=== PATIENT | male | born 1965 | race Caucasian/White ===

== ENCOUNTER 2020-10-21 16:06 | Emergency (ER) | payer SELFPAY ==
[2020-10-21] MEDS ORDERED: Sodium Chloride 0.9% 10 ML Syringe FLUSH PRN (16:59)
--- NOTE | 2020-10-21 17:04 | EDM.PDOC ---
ED HPI GENERAL MEDICAL PROBLEM - General Chief Complaint: Abdominal Pain Stated Complaint: LOWER ABD PAIN Time Seen by Provider: 10/21/20 16:45 Source of Information: Reports: Patient, Family, RN Notes Reviewed History Limitations: Reports: No Limitations - History of Present Illness INITIAL COMMENTS - FREE TEXT/NARRATIVE: Seth presents today for complaint of left lower abdominal pain. He initially presented to the clinic in [place], [place]. Seth states he has been having left lower abdominal pain for 2 or more days with significant worsening today. He reports pain as a 7/10 when it is at its worst and 5/10 when it lets up. He has not tried any OTC medications or treatments for the pain. He denies diarrhea, nausea, vomiting, constipation, fever, chills. He reports colonoscopy about 2 years ago Marcello Berumen Left Lower Abdomen Pain Score (Numeric/FACES): 6 - Related Data Allergies Allergy/AdvReac Type Severity Reaction Status Date / Time No Known Allergies Allergy Verified 10/21/20 16:40 Home Meds: Home Meds metFORMIN HCl [Metformin HCl ER] 1,000 mg PO DAILY 10/21/20 [History] traZODone HCl [Trazodone HCl] 100 - 200 mg PO BEDTIME 10/21/20 [History] Past Medical History Gastrointestinal History: Reports: Other (See Below) Other Gastrointestinal History: hernia Psychiatric History: Reports: Anxiety Endocrine/Metabolic History: Reports: Other (See Below) Other Endocrine/Metabolic History: pre-diabetic - Past Surgical History GI Surgical History: Reports: Cholecystectomy Social & Family History - Tobacco Use Years of Tobacco use: 30 Packs/Tins Daily: 1 - Caffeine Use Caffeine Use: Reports: None - Recreational Drug Use Recreational Drug Use: No ED ROS GENERAL - Review of Systems Review Of Systems: See Below Constitutional: Denies: Fever, Chills, Malaise, Weakness HEENT: Reports: No Symptoms Respiratory: Reports: No Symptoms Cardiovascular: Reports: No Symptoms Endocrine: Reports: No Symptoms GI/Abdominal: Reports: Abdominal Pain (LLQ), Decreased Appetite. Denies: Black Stool, Bloody Stool, Constipation, Diarrhea, Difficulty Swallowing, Distension, Flatus, Nausea, Stool Incontinence, Vomiting : Denies: Dysuria, Flank Pain, Frequency, Hematuria, Incontinence, Pain, Urgency, Urinary Retention Musculoskeletal: Reports: No Symptoms Skin: Reports: No Symptoms Neurological: Reports: No Symptoms Psychiatric: Reports: No Symptoms Hematologic/Lymphatic: Reports: No Symptoms Immunologic: Reports: No Symptoms ED EXAM, GI/ABD - Physical Exam Exam: See Below Exam Limited By: No Limitations General Appearance: Alert, WD/WN, Mild Distress Eyes: Bilateral: Normal Appearance Ears: Normal External Exam, Normal Canal, Hearing Grossly Normal, Normal TMs Throat/Mouth: Normal Inspection, Normal Gums, Normal Oropharynx, Normal Voice, No Airway Compromise Head: Atraumatic, Normocephalic Neck: Normal Inspection, Supple, Non-Tender, Full Range of Motion. No: Lym phadenopathy (R), Lymphadenopathy (L) Respiratory/Chest: No Respiratory Distress, Lungs Clear, Normal Breath Sounds, No Accessory Muscle Use, Chest Non-Tender. No: Crackles, Rales, Rhonchi, Wheezing Cardiovascular: Normal Peripheral Pulses, No Edema, No Gallop, No Murmur, No Rub, Tachycardia GI/Abdominal Exam: Normal Bowel Sounds, No Organomegaly, No Distention, No Mass, Pelvis Stable, Tender (LLQ). No: Guarding, Rigid, Rebound Back Exam: Normal Inspection, Full Range of Motion. No: CVA Tenderness (R), CVA Tenderness (L) Extremities: Normal Inspection, Normal Range of Motion, Non-Tender, No Pedal Edema, Normal Capillary Refill Neurological: Alert, Oriented, Normal Cognition, Normal Gait, No Motor/Sensory Deficits Psychiatric: Normal Affect, Normal Mood Skin Exam: Warm, Dry, Intact, Normal Color, No Rash Lymphatic: No Adenopathy Course - Vital Signs Last Recorded V/S: Last Vital Signs Temp 36.8 C 10/21/20 16:41 Pulse 103 H 10/21/20 18:41 Resp 16 10/21/20 16:41 BP 129/105 H 10/21/20 18:41 Pulse Ox 98 10/21/20 16:41 - Orders/Labs/Meds Orders: Active Orders 24 hr Category Date Time Status CULTURE BLOOD [BC] Urgent Lab 10/21/20 17:00 Received CULTURE BLOOD [BC] Urgent Lab 10/21/20 17:05 Received Blood Culture x2 Reflex Set [OM.PC] Urgent Oth 10/21/20 16:49 Ordered Saline Lock Insert [OM.PC] Routine Oth 10/21/20 16:59 Ordered Labs: Laboratory Tests 07/01/0310/21/20 10/21/20 Range/Units 17:00 17:00 17:00 WBC 9.7 (4.5-11.0) K/uL RBC 4.54 (4.30-5.90) M/uL Hgb 14.7 (12.0-15.0) g/dL Hct 43.3 (40.0-54.0) % MCV 95 (80-98) fL MCH 32 H (27-31) pg MCHC 34 (32-36) % Plt Count 141 L (150-400) K/uL Neut % (Auto) 79.8 H (36-66) % Lymph % (Auto) 9.8 L (24-44) % [place] % (Auto) 9.8 H (2-6) % Eos % (Auto) 0.4 L (2-4) % Baso % (Auto) 0.2 (0-1) % Sodium 138 L (140-148) mmol/L Potassium 4.4 (3.6-5.2) mmol/L Chloride 101 (100-108) mmol/L Carbon Dioxide 27 (21-32) mmol/L Anion Gap 14.4 H (5.0-14.0) mmol/L BUN 17 (7-18) mg/dL Creatinine 1.0 (0.8-1.3) mg/dL Est Cr Clr Drug Dosing 102.10 mL/min Estimated GFR (MDRD) > 60 (>60) Glucose 153 H (74-106) mg/dL Lactic Acid 1.0 (0.4-2.0) mmol/L Calcium 9.0 (8.5-10.1) mg/dL Total Bilirubin 0.4 (0.2-1.0) mg/dL AST 16 (15-37) U/L ALT 43 (12-78) U/L Alkaline Phosphatase 66 (46-116) U/L C-Reactive Protein (0.0-0.3) mg/dL Total Protein 7.5 (6.4-8.2) g/dL Albumin 3.8 (3.4-5.0) g/dL Globulin 3.7 H (2.3-3.5) g/dL Albumin/Globulin Ratio 1.0 L (1.2-2.2) Procalcitonin ng/mL 10/21/20 10/21/20 Range/Units 17:00 17:00 WBC (4.5-11.0) K/uL RBC (4.30-5.90) M/uL Hgb (12.0-15.0) g/dL Hct (40.0-54.0) % MCV (80-98) fL MCH (27-31) pg MCHC (32-36) % Plt Count (150-400) K/uL Neut % (Auto) (36-66) % Lymph % (Auto) (24-44) % [place] % (Auto) (2-6) % Eos % (Auto) (2-4) % Baso % (Auto) (0-1) % Sodium (140-148) mmol/L Potassium (3.6-5.2) mmol/L Chloride (100-108) mmol/L Carbon Dioxide (21-32) mmol/L Anion Gap (5.0-14.0) mmol/L BUN (7-18) mg/dL Creatinine (0.8-1.3) mg/dL Est Cr Clr Drug Dosing mL/min Estimated GFR (MDRD) (>60) Glucose (74-106) mg/dL Lactic Acid (0.4-2.0) mmol/L Calcium (8.5-10.1) mg/dL Total Bilirubin (0.2-1.0) mg/dL AST (15-37) U/L ALT (12-78) U/L Alkaline Phosphatase (46-116) U/L C-Reactive Protein 12.37 H (0.0-0.3) mg/dL Total Protein (6.4-8.2) g/dL Albumin (3.4-5.0) g/dL Globulin (2.3-3.5) g/dL Albumin/Globulin Ratio (1.2-2.2) Procalcitonin < 0.05 ng/mL Patient lab work discussed with him, CT results pending. CT abdomen/pelvis reviewed with Dr. Giraldo, noted stranding and diverticuli. Patient pain 2/10, no nausea. We will continue to hydrate and await CT results. Patient in agreement with plan. Meds: Medications Discontinued Medications Generic Name Dose Route Start Last Admin Trade Name Freq PRN Reason Stop Dose Admin Hydrocodone Bitart/Acetaminophen 1 tab 10/21/20 18:40 07/09/21 18:58 Acetaminophen/Hydrocodone 325-10 Mg Tab PO 10/21/20 18:41 1 tab ONETIME ONE Administration Ciprofloxacin 500 mg 10/21/20 18:41 10/21/20 18:57 Ciprofloxacin 500 Mg Tab PO 10/21/20 18:42 500 mg ONETIME ONE Administration Hydromorphone HCl 0.5 mg 10/21/20 17:07 10/21/20 17:38 Hydromorphone 0.5 Mg/0.5 Ml Syringe IVPUSH 10/21/20 17:08 0.5 mg ONETIME ONE Administration Hydromorphone HCl 0.5 mg 10/21/20 17:07 10/21/20 19:00 Hydromorphone 0.5 Mg/0.5 Ml Syringe IVPUSH 10/21/20 17:08 0.5 mg ONETIME ONE Administration Sodium Chloride 1,000 mls @ 150 mls/hr 10/21/20 17:15 10/21/20 17:33 Normal Saline IV 150 mls/hr ASDIRECTED WM Administration Metronidazole 500 mg 10/21/20 18:41 10/21/20 18:55 Metronidazole 250 Mg Tab PO 10/21/20 18:42 500 mg ONETIME ONE Administration Ondansetron HCl 4 mg 10/21/20 17:07 10/21/20 17:35 Ondansetron 4 Mg/2 Ml Sdv IVPUSH 10/21/20 17:08 4 mg ONETIME ONE Administration Sodium Chloride 10 ml 10/21/20 16:59 Sodium Chloride 0.9% 10 Ml Syringe FLUSH ASDIRECTED PRN Keep Vein Open - Re-Assessments/Exams Free Text/Narrative Re-Assessment/Exam: 10/21/20 1800 Patient reports his pain has improved, hurts only when moving around. He denies any other complaints. CT results reviewed with Seth, no abscess noted. We can treat as outpatient. Seth is in agreement with plan. Dr. Giraldo in agreement with plan, Dr. Mora in agreement plan. Patient will be discharged with oral course of ciprofloxacin and flagyl. Education provided to patient on antibiotic use, when to return to emergency room, Seth verbalized understanding. Departure - Departure Time of Disposition: 18:46 Disposition: Home, Self-Care 01 Condition: Good Clinical Impression: Abdominal pain, Diverticulitis - Discharge Information *PRESCRIPTION DRUG MONITORING PROGRAM REVIEWED*: No *COPY OF PRESCRIPTION DRUG MONITORING REPORT IN PATIENT ARI: No Instructions: Diverticulitis, [id number] Referrals: PCP,None [Primary Care Provider] - Forms: ED Department Discharge Additional Instructions: You have been evaluated and treated for abdominal pain and diverticulitis. Eat a full liquid to soft diet for the next 2 to 3 days. Advance as tolerated. Take tylenol 1000mg as needed for pain up to three times a day. Take hydrocodone 5/325mg by mouth up to three times a day for pain. Take ciprofloxacin 500mg tablet by mouth twice per day for 10 days. Take metronidazole 500mg by mouth three times a day for 10 days. Do not drink alcohol. Follow up with Primary provider on Saturday/SaturdayOctober 24 for recheck. Drink plenty of fluids to stay hydrated. Return for any worsening, issues or concerns. Sepsis Event Note (ED) - Evaluation Sepsis Screening Result: Possible Sepsis Risk - Focused Exam Vital Signs: Vital Signs Temp Pulse Resp BP Pulse Ox 10/21/20 18:41 103 H 129/105 H 10/21/20 17:26 102 H 139/96 H 10/21/20 16:41 36.8 C 109 H 16 149/103 H 98 10/21/20 16:33 36.8 C 109 H 16 149/103 H 98 - My Orders Last 24 Hours: My Active Orders 10/21/20 16:49 Blood Culture x2 Reflex Set [OM.PC] Urgent 10/21/20 16:59 Saline Lock Insert [OM.PC] Routine 10/21/20 17:00 CULTURE BLOOD [BC] Urgent 10/21/20 17:05 CULTURE BLOOD [BC] Urgent - Assessment/Plan Last 24 Hours: My Active Orders 10/21/20 16:49 Blood Culture x2 Reflex Set [OM.PC] Urgent 10/21/20 16:59 Saline Lock Insert [OM.PC] Routine 10/21/20 17:00 CULTURE BLOOD [BC] Urgent 10/21/20 17:05 CULTURE BLOOD [BC] Urgent Assessment:: Abdominal pain, Diverticulitis Plan: Patient evaluated and treated for abdominal pain and diverticulitis. Eat a full liquid to soft diet for the next 2 to 3 days. Advance as tolerated. Take tylenol 1000mg as needed for pain up to three times a day. Take hydrocodone 5/325mg by mouth up to three times a day for pain. Take ciprofloxacin 500mg tablet by mouth twice per day for 10 days. Take metronidazole 500mg by mouth three times a day for 10 days. Do not drink alcohol. Follow up with Primary provider on Saturday/SaturdayOctober 24 for recheck. Drink plenty of fluids to stay hydrated. Return for any worsening, issues or concerns.
[2020-10-21] MEDS ORDERED: Ondansetron 4 MG/2 ML SDV IVPUSH ONE (17:07)
[2020-10-21] MEDS ORDERED: HYDROmorphone 0.5 MG/0.5 ML Syringe IVPUSH ONE ×2 (17:07)
[2020-10-21] MEDS ORDERED: Sodium Chloride 0.9% 1,000 ML IV SCH (17:15)
--- NOTE | 2020-10-21 18:24 | CRLCT ---
For Patients: As a result of the Century Cures Act, medical imaging exams and procedure reports are released immediately into your electronic medical record. You may view this report before your referring provider. If you have questions, please contact your health care provider. INDICATION: Left lower quadrant abdominal pain and fever TECHNIQUE: Axial images were obtained from the diaphragm to the pubic symphysis. Reformats were obtained in the coronal and sagittal plane. IV Contrast: None Oral Contrast: None COMPARISON: None. FINDINGS: Lower chest: Parenchymal scarring and slight bronchiectasis in the right middle lobe as well as other scattered areas of more bandlike scarring in the lower lungs. Slight pleural thickening at the posterior aspect of the right hemithorax and lateral aspect of the left hemithorax. Liver: Diffusely decreased in density consistent with hepatic steatosis without focal lesion. Gallbladder and bile ducts: Status post cholecystectomy. Spleen: Unremarkable. Normal in size without mass. Pancreas: Some linear calcification along the pancreatic bed without a discrete lesion on this unenhanced exam. Adrenal glands: Unremarkable. No nodules. Kidneys: Unremarkable. No masses, stones, or hydronephrosis. Vasculature: No abdominal aortic aneurysm with mild atherosclerotic calcification. Numerous gastric and gastroepiploic collateral vessels. GI tract: The stomach is unremarkable. No dilated loops of large or small intestine with colonic diverticulosis noted. Focal inflammation adjacent to a proximal sigmoid diverticulum. Adjacent fascial thickening although without discrete abscess. Pelvis: Unremarkable. Bones: Minimal degenerative disc disease lumbar spine. IMPRESSION: 1. Acute diverticulitis proximal sigmoid colon without evidence of abscess. 2. Linear calcification noted along the pancreatic bed with numerous gastric and gastroepiploic collateral vessels. In conjunction, appearance suggests a prior left upper quadrant inflammatory process, such as pancreatitis, with subsequent chronic splenic vein occlusion. Please note that all CT scans at this facility use dose modulation, iterative reconstruction, and/or weight-based dosing when appropriate to reduce radiation dose to as low as reasonably achievable. Dictated by Ty Gordon MD @ 10/21/2020 6:22:[address] Ty Gordon @ Oct 21 2020 6:22PM
[2020-10-21] MEDS ORDERED: Acetaminophen/HYDROcodone 325-10 MG Tab PO ONE (18:40)
[2020-10-21] MEDS ORDERED: metroNIDAZOLE 250 MG Tab PO ONE (18:41)
[2020-10-21] MEDS ORDERED: Ciprofloxacin 500 MG Tab PO ONE (18:41)
== END 2020-10-21 19:11 | disposition home or self-care (01) ==
LOC: JP.ED 16:06
DX: K57.32 Diverticulitis of large intestine without perforation or abscess without bleeding (principal); Z72.0 Tobacco use
CPT/HCPCS: 36415; 74176; 80053; 83605; 84145; 85025; 86140; 87040; 96374; 96375; 96376; 99284; A9270; J1170; J2405; J7030

== ENCOUNTER 2022-04-05 21:27 | Emergency (ER) | payer BC, MEDICAID ==
[2022-04-05 22:21] LABS: ESTIMATED GFR 101 mL/min (>60)
[2022-04-05] MEDS ORDERED: Sodium Chloride 0.9% 10 ML Syringe FLUSH PRN (22:45)
[2022-04-05] MEDS ORDERED: Sodium Chloride 0.9% 1,000 ML IV SCH (22:45)
[2022-04-05] MEDS ORDERED: LORazepam 2 MG/ML SDV IVPUSH ONE (23:51)
[2022-04-05] MEDS ORDERED: LORazepam 1 MG Tab PO ONE (23:55)
== END 2022-04-06 00:55 | disposition other institution (70) ==
LOC: JP.ED 21:27
DX: F10.120 Alcohol abuse with intoxication, uncomplicated (principal); F33.1 Major depressive disorder, recurrent, moderate; Y90.8 Blood alcohol level of 240 mg/100 ml or more; Z87.891 Personal history of nicotine dependence; Z20.822 Contact with and (suspected) exposure to COVID-19
CPT/HCPCS: 36415; 80053; 80305; 80307; 81001; 83690; 85025; 87635; 96360; 99284; A9270; J7030; U0002

== ENCOUNTER 2022-06-13 11:31 | Emergency (ER) | payer MEDICAID ==
[2022-06-13] MEDS: Sodium Chloride 0.9% 10 ML Syringe FLUSH PRN ×2 (12:04→17:36)
[2022-06-13] MEDS ORDERED: Sodium Chloride 0.9% 1,000 ML IV ONE (12:05)
[2022-06-13] MEDS ORDERED: HYDROmorphone 0.5 MG/0.5 ML Syringe IVPUSH ONE (12:31)
[2022-06-13] MEDS ORDERED: Pantoprazole 80 MG in Sodium Chloride 0.9% 100 ML IV ONE ×2 (12:31→13:15)
[2022-06-13] MEDS ORDERED: Ondansetron 4 MG/2 ML SDV IVPUSH ONE (12:31)
[2022-06-13] MEDS ORDERED: hydrOXYzine HCl 25 MG Tab PO ONE (13:33)
[2022-06-13] MEDS ORDERED: LORazepam 2 MG/ML SDV IVPUSH ONE ×3 (13:55→20:19)
[2022-06-13] MEDS ORDERED: Ketorolac 30 MG/ML SDV IVPUSH ONE (17:25)
== END 2022-06-13 20:44 ==
LOC: JP.ED 11:31
DX: K42.9 Umbilical hernia without obstruction or gangrene (principal); K29.20 Alcoholic gastritis without bleeding; F10.220 Alcohol dependence with intoxication, uncomplicated; K21.9 Gastro-esophageal reflux disease without esophagitis; Y90.6 Blood alcohol level of 120-199 mg/100 ml; Z72.0 Tobacco use; Z79.899 Other long term (current) drug therapy; Z20.822 Contact with and (suspected) exposure to COVID-19
CPT/HCPCS: 36415; 80048; 80076; 80305; 80307; 82947; 83690; 83735; 85025; 87635; 96361; 96365; 96375; 96376; 99284; A9270; C9113; J1170; J1885; J2060; J2405; J3490; J7030; U0002

== ENCOUNTER 2022-10-15 09:36 | Emergency (ER) | payer MEDICAID ==
[2022-10-15 09:59] LABS: BASOPHILS ABSOLUTE AUTO 0.03 K/uL (0.00-0.10); BASOPHILS PERCENT AUTO 0.4 % (0.1-1.3); EOSINOPHILS ABSOLUTE AUTO 0.03 K/uL (0.00-0.40); EOSINOPHILS PERCENT AUTO 0.4 % (0.0-5.4); HEMATOCRIT 46.1 % (38.4-49.7); HEMOGLOBIN 16.5 g/dL (12.9-16.9); IMMATURE GRAN ABSOLUTE AUTO 0.04 K/uL (0.00-0.23); IMMATURE GRAN PERCENT AUTO 0.5 % (0.0-0.7); LYMPHOCYTES ABSOLUTE AUTO 1.41 K/uL (0.8-3.3); LYMPHOCYTES PERCENT AUTO 18.5 % (11.4-47.7); MEAN CORPUSCULAR HEMOGLOBIN 31.6 pg (31.6-35.5); MEAN CORPUSCULAR HGB CONC 35.8 g/dL (31.6-35.5); MEAN CORPUSCULAR VOLUME 88.3 fL (81.4-99.0); MONOCYTES ABSOLUTE AUTO 0.42 K/uL (0.20-0.90); MONOCYTES PERCENT AUTO 5.5 % (3.3-12.6); NEUTROPHILS PERCENT AUTO 74.7 % (40.0-78.1); PLATELET COUNT,PLT 208 K/uL (130-375); RED BLOOD CELL COUNT 5.22 M/uL (4.14-5.76); WHITE BLOOD CELL COUNT,WBC 7.6 K/uL (3.2-11.0)
[2022-10-15 10:22] LABS: AMPHETAMINES SCREEN, URINE NEGATIVE (NEGATIVE); BARBITURATE SCREEN,URINE NEGATIVE (NEGATIVE); BENZODIAZEPINES SCREEN,URINE NEGATIVE (NEGATIVE); METHADONE SCREEN, URINE NEGATIVE (NEGATIVE); METHAMPHETAMINES SCREEN, URINE NEGATIVE (NEGATIVE); OXYCODONE SCREEN,URINE NEGATIVE (NEGATIVE); PROPOXYPHENE SCREEN,URINE NEGATIVE (NEGATIVE); THC SCREEN,URINE 50 NG/ML PRESUMPTIVE POSITIVE (NEGATIVE)
[2022-10-15 10:25] LABS: A/G RATIO 0.9 (1.2-2.2); ALANINE AMINOTRANSFERASE,ALT 74 U/L (12-78); ALBUMIN 3.6 g/dL (3.4-5.0); ALKALINE PHOSPHATASE 130 U/L (46-116); ASPARTATE AMNIOTRANSFERASE,AST 56 U/L (15-37); BILIRUBIN TOTAL 0.5 mg/dL (0.2-1.0); BLOOD UREA NITROGEN,BUN 7 mg/dL (7-18); CARBON DIOXIDE,CO2 25 mmol/L (21-32); CHLORIDE,CL 99 mmol/L (100-108); EST CRCL DRUG DOSING (CG) 97.04 mL/min; ESTIMATED GFR 89 mL/min (>60); GLUCOSE RANDOM 187 mg/dL (74-106); MAGNESIUM 2.1 mg/dL (1.8-2.4); POTASSIUM,K 4.1 mmol/L (3.6-5.2); PROTEIN TOTAL,TP 7.6 g/dL (6.4-8.2); SODIUM,NA 134 mmol/L (140-148)
[2022-10-15 10:26] LABS: ANION GAP 14.1 mmol/L (5.0-14.0)
[2022-10-15] MEDS ORDERED: LORazepam 1 MG Tab PO ONE (13:25)
== END 2022-10-15 14:12 ==
LOC: JP.ED 09:36
DX: F10.129 Alcohol abuse with intoxication, unspecified (principal); F12.90 Cannabis use, unspecified, uncomplicated; K21.9 Gastro-esophageal reflux disease without esophagitis; Z79.899 Other long term (current) drug therapy; Z90.49 Acquired absence of other specified parts of digestive tract; Z20.822 Contact with and (suspected) exposure to COVID-19
CPT/HCPCS: 36415; 80053; 80305; 80307; 83690; 83735; 85025; 87635; 99284; A9270; U0002

== ENCOUNTER 2023-05-07 21:13 | Emergency (ER) | payer MEDICAID ==
[2023-05-07 21:46] LABS: BASOPHILS ABSOLUTE AUTO 0.04 K/uL (0.00-0.10); BASOPHILS PERCENT AUTO 0.4 % (0.1-1.3); EOSINOPHILS ABSOLUTE AUTO 0.03 K/uL (0.00-0.40); EOSINOPHILS PERCENT AUTO 0.3 % (0.0-5.4); HEMATOCRIT 38.9 % (38.4-49.7); HEMOGLOBIN 13.8 g/dL (12.9-16.9); IMMATURE GRAN ABSOLUTE AUTO 0.08 K/uL (0.00-0.23); IMMATURE GRAN PERCENT AUTO 0.8 % (0.0-0.7); LYMPHOCYTES PERCENT AUTO 15.5 % (11.4-47.7); MEAN CORPUSCULAR HEMOGLOBIN 31.7 pg (31.6-35.5); MEAN CORPUSCULAR HGB CONC 35.5 g/dL (31.6-35.5); MEAN CORPUSCULAR VOLUME 89.4 fL (81.4-99.0); MONOCYTES ABSOLUTE AUTO 0.83 K/uL (0.20-0.90); MONOCYTES PERCENT AUTO 8.6 % (3.3-12.6); NEUTROPHILS ABSOLUTE AUTO 7.19 K/uL (1.0-7.6); NEUTROPHILS PERCENT AUTO 74.4 % (40.0-78.1); PLATELET COUNT,PLT 271 K/uL (130-375); RED BLOOD CELL COUNT 4.35 M/uL (4.14-5.76); WHITE BLOOD CELL COUNT,WBC 9.7 K/uL (3.2-11.0)
[2023-05-07 22:02] LABS: ALANINE AMINOTRANSFERASE,ALT 32 U/L (12-78); ALBUMIN 3.1 g/dL (3.4-5.0); ALKALINE PHOSPHATASE 119 U/L (46-116); ASPARTATE AMNIOTRANSFERASE,AST 23 U/L (15-37); BILIRUBIN TOTAL 0.7 mg/dL (0.2-1.0); BLOOD UREA NITROGEN,BUN 10 mg/dL (7-18); CALCIUM 7.5 mg/dL (8.5-10.1); CARBON DIOXIDE,CO2 26 mmol/L (21-32); CHLORIDE,CL 91 mmol/L (100-108); CREATININE 0.9 mg/dL (0.8-1.3); EST CRCL DRUG DOSING (CG) 107.82 mL/min; ESTIMATED GFR 101 mL/min (>60); GLUCOSE RANDOM 259 mg/dL (74-106); POTASSIUM,K 4.2 mmol/L (3.6-5.2); PROTEIN TOTAL,TP 6.3 g/dL (6.4-8.2); SODIUM,NA 125 mmol/L (140-148); TROPONIN I HIGH SENSITIVITY 4.9 pg/mL (<=60.3)
[2023-05-07 22:03] LABS: ANION GAP 12.2 mmol/L (5.0-14.0)
[2023-05-07 22:17] LABS: AMPHETAMINES SCREEN, URINE NEGATIVE (NEGATIVE); BARBITURATE SCREEN,URINE NEGATIVE (NEGATIVE); BENZODIAZEPINES SCREEN,URINE NEGATIVE (NEGATIVE); METHADONE SCREEN, URINE NEGATIVE (NEGATIVE); METHAMPHETAMINES SCREEN, URINE NEGATIVE (NEGATIVE); OXYCODONE SCREEN,URINE NEGATIVE (NEGATIVE); PROPOXYPHENE SCREEN,URINE NEGATIVE (NEGATIVE); THC SCREEN,URINE 50 NG/ML PRESUMPTIVE POSITIVE (NEGATIVE)
== END 2023-05-07 22:40 | disposition other institution (70) ==
LOC: JP.ED 21:13
DX: R07.89 Other chest pain (principal); F10.920 Alcohol use, unspecified with intoxication, uncomplicated; F17.210 Nicotine dependence, cigarettes, uncomplicated; Z90.49 Acquired absence of other specified parts of digestive tract
CPT/HCPCS: 36415; 80053; 80305-QW; 80307; 83690; 84484; 85025; 93005; 93010; 99284; 99285; U0002

== ENCOUNTER 2023-08-02 11:13 | Emergency (ER) | payer MEDICAID ==
[2023-08-02 11:41] LABS: BASOPHILS PERCENT AUTO 0.4 % (0.1-1.3); EOSINOPHILS PERCENT AUTO 0.2 % (0.0-5.4); HEMATOCRIT 46.4 % (38.4-49.7); HEMOGLOBIN 16.7 g/dL (12.9-16.9); IMMATURE GRAN ABSOLUTE AUTO 0.04 K/uL (0.00-0.23); IMMATURE GRAN PERCENT AUTO 0.7 % (0.0-0.7); LYMPHOCYTES ABSOLUTE AUTO 1.26 K/uL (0.8-3.3); MEAN CORPUSCULAR HEMOGLOBIN 31.6 pg (31.6-35.5); MEAN CORPUSCULAR VOLUME 87.7 fL (81.4-99.0); MONOCYTES PERCENT AUTO 5.5 % (3.3-12.6); NEUTROPHILS ABSOLUTE AUTO 3.86 K/uL (1.0-7.6); NEUTROPHILS PERCENT AUTO 70.2 % (40.0-78.1); PLATELET COUNT,PLT 173 K/uL (130-375); RED BLOOD CELL COUNT 5.29 M/uL (4.14-5.76); WHITE BLOOD CELL COUNT,WBC 5.5 K/uL (3.2-11.0)
[2023-08-02 11:43] LABS: BASOPHILS ABSOLUTE AUTO 0.02 K/uL (0.00-0.10); EOSINOPHILS ABSOLUTE AUTO 0.01 K/uL (0.00-0.40)
[2023-08-02] MEDS: Ondansetron 4 MG/2 ML SDV IVPUSH ONE (11:57)
[2023-08-02] MEDS: Lactated Ringers 1,000 ML IV ONE (11:57)
[2023-08-02] MEDS: Sodium Chloride 0.9% 10 ML Syringe FLUSH PRN (12:00)
[2023-08-02 12:10] LABS: ALANINE AMINOTRANSFERASE,ALT 51 U/L (12-78); ALBUMIN 3.6 g/dL (3.4-5.0); ALKALINE PHOSPHATASE 88 U/L (46-116); ASPARTATE AMNIOTRANSFERASE,AST 51 U/L (15-37); BILIRUBIN TOTAL 0.6 mg/dL (0.2-1.0); BLOOD UREA NITROGEN,BUN 24 mg/dL (7-18); CARBON DIOXIDE,CO2 24 mmol/L (21-32); CHLORIDE,CL 100 mmol/L (100-108); CREATININE 1.3 mg/dL (0.8-1.3); EST CRCL DRUG DOSING (CG) 69.64 mL/min; ESTIMATED GFR 64 mL/min (>60); GLUCOSE RANDOM 339 mg/dL (74-106); POTASSIUM,K 4.4 mmol/L (3.6-5.2); PROTEIN TOTAL,TP 7.3 g/dL (6.4-8.2); SODIUM,NA 138 mmol/L (140-148)
[2023-08-02 12:13] LABS: ANION GAP 18.4 mmol/L (5.0-14.0)
[2023-08-02] MEDS: MVI, Adult with Vitamin K 10 ML, Thiamine 100 MG, Folic Acid 1 MG, Magnesium Sulfate 3 ... IV SCH (13:40)
[2023-08-02 15:31] LABS: CALCIUM 7.6 mg/dL (8.5-10.1); CREATININE 1.1 mg/dL (0.8-1.3); EST CRCL DRUG DOSING (CG) 82.3 mL/min
[2023-08-02] MEDS: Lactated Ringers 1,000 ML IV SCH (15:44)
[2023-08-02] MEDS: Alum Hydrox/Mag Hydrox/Simeth 15 ML, Lidocaine 2% 15 ML PO ONE (16:35)
== END 2023-08-02 18:04 | disposition home or self-care (01) ==
LOC: JP.ED 11:13
DX: F10.120 Alcohol abuse with intoxication, uncomplicated (principal); Z53.29 Procedure and treatment not carried out because of patient's decision for other reasons; Z79.899 Other long term (current) drug therapy; Z90.49 Acquired absence of other specified parts of digestive tract; Y90.9 Presence of alcohol in blood, level not specified
CPT/HCPCS: 36415; 80048; 80053; 80307; 83605; 83735; 84484; 85025; 96361; 96365; 96375; 99283; 99285; A9270; J2405; J3411; J3475; J3490; J7030; J7120

== ENCOUNTER 2023-08-03 09:09 | Inpatient (IN) | payer MEDICAID ==
[2023-08-03 09:52] LABS: BASE EXCESS VENOUS 1.2 mm/L; BICARBONATE,VENOUS 24.2 mmol/L; CARBOXYHEMOGLOBIN 2.2 % (0.0-1.6); METHEMOGLOBIN 1.3 %; O2 SATURATION VENOUS 68.8; OXYHEMOGLOBIN 66.4 %; PCO2 VENOUS 35.2 mm/Hg; PH,VENOUS 7.453 (7.350-7.450); TOTAL HEMOGLOBIN 13.8 g/dL (13.5-18.0)
[2023-08-03 09:56] LABS: PO2 VENOUS 35.6 mm/Hg
[2023-08-03 10:06] LABS: HEMOGLOBIN 13.8 g/dL (12.9-16.9)
[2023-08-03 10:12] LABS: WHITE BLOOD CELL COUNT,WBC 5.4 K/uL (3.2-11.0)
[2023-08-03 10:17] LABS: PLATELET COUNT,PLT 164 K/uL (130-375)
[2023-08-03 10:19] LABS: LYMPHOCYTES ABSOLUTE MAN 1.08 K/uL (0.8-3.3); LYMPHOCYTES PERCENT MAN 20 % (24-44); MONOCYTES ABSOLUTE MAN 0.38 K/uL (0.20-0.90); MONOCYTES PERCENT MAN 7 % (2-6); NEUTROPHILS ABSOLUTE MAN 3.94 K/uL (1.0-7.6); SEG NEUTROPHILS PERCENT MAN 73 % (36-66)
[2023-08-03 10:25] LABS: A/G RATIO 1.1 (1.2-2.2); ALANINE AMINOTRANSFERASE,ALT 90 U/L (12-78); ALBUMIN 3.3 g/dL (3.4-5.0); ALKALINE PHOSPHATASE 91 U/L (46-116); ASPARTATE AMNIOTRANSFERASE,AST 171 U/L (15-37); BILIRUBIN TOTAL 1.4 mg/dL (0.2-1.0); BLOOD UREA NITROGEN,BUN 16 mg/dL (7-18); CALCIUM 7.7 mg/dL (8.5-10.1); CARBON DIOXIDE,CO2 24 mmol/L (21-32); CHLORIDE,CL 93 mmol/L (100-108); CREATININE 1.3 mg/dL (0.8-1.3); ESTIMATED GFR 64 mL/min (>60); GLUCOSE RANDOM 192 mg/dL (74-106); POTASSIUM,K 3.9 mmol/L (3.6-5.2); PRO B-TYPE NATRIUR PEPT,BNPPRO 147 pg/mL (5-125); PROTEIN TOTAL,TP 6.3 g/dL (6.4-8.2); SODIUM,NA 128 mmol/L (140-148)
[2023-08-03 10:26] LABS: ANION GAP 14.9 mmol/L (5.0-14.0)
[2023-08-03 10:27] LABS: TROPONIN I HIGH SENSITIVITY 5.2 pg/mL (<=60.3)
[2023-08-03] MEDS: LORazepam 2 MG/ML SDV IM ONE (10:28)
[2023-08-03 10:30] LABS: INR 1.1
[2023-08-03] MEDS: Sodium Chloride 0.9% 100 ML IV SCH (11:40)
[2023-08-03] MEDS: Sodium Chloride 0.9% 10 ML Syringe FLUSH PRN (11:40)
[2023-08-03] MEDS: Iopamidol 755 Mg/ML 100 ML Bottle IV SCH (11:40)
[2023-08-03 11:41] LABS: APPEARANCE,URINE CLEAR (CLEAR); BILIRUBIN,URINE NEGATIVE (NEGATIVE); COLOR,URINE YELLOW (YELLOW); GLUCOSE,URINE 250 mg/dL (NEGATIVE); KETONES,URINE NEGATIVE (NEGATIVE); LEUKOCYTE ESTERASE,URINE NEGATIVE (NEGATIVE); NITRITE,URINE NEGATIVE (NEGATIVE); OCCULT BLOOD,URINE SMALL (NEGATIVE); PH,URINE 6.5 (5.0-8.0); PROTEIN,URINE NEGATIVE (NEGATIVE); UROBILINOGEN,URINE 0.2 EU/dL (0.2-1.0)
[2023-08-03 11:44] LABS: AMORPHOUS SEDIMENT,URINE NOT SEEN; BACTERIA,URINE NOT SEEN; EPITHELIAL CELLS,URINE NOT SEEN; MUCUS,URINE NOT SEEN; WBC,URINE 0-5 (0-5)
[2023-08-03 11:45] LABS: AMPHETAMINES SCREEN, URINE NEGATIVE (NEGATIVE); BARBITURATE SCREEN,URINE NEGATIVE (NEGATIVE); BENZODIAZEPINES SCREEN,URINE NEGATIVE (NEGATIVE); METHADONE SCREEN, URINE NEGATIVE (NEGATIVE); METHAMPHETAMINES SCREEN, URINE NEGATIVE (NEGATIVE); OXYCODONE SCREEN,URINE NEGATIVE (NEGATIVE); PROPOXYPHENE SCREEN,URINE NEGATIVE (NEGATIVE); THC SCREEN,URINE 50 NG/ML PRESUMPTIVE POSITIVE (NEGATIVE)
[2023-08-03] MEDS ORDERED: Naloxone 0.4 MG/ML SDV IVPUSH PRN (11:52)
[2023-08-03] MEDS: LORazepam 2 MG/ML SDV IVPUSH PRN (12:18)
[2023-08-03] MEDS: HYDROmorphone 0.5 MG/0.5 ML Syringe IVPUSH PRN (12:23)
[2023-08-03] MEDS: MVI, Adult with Vitamin K 10 ML, Thiamine 200 MG, Zinc/Copper/Manganese/Selenium 1 ML i... IV ONE (12:26)
[2023-08-03] MEDS ORDERED: Magnesium Hydroxide 400 MG/5 ML Susp 30 ML Cup PO PRN (15:09)
[2023-08-03] MEDS ORDERED: Nicotine 14 MG/24 Hr Patch TRDERM PRN (15:09)
[2023-08-03] MEDS ORDERED: Ondansetron 4 MG Tab.DIS PO PRN (15:09)
[2023-08-03] MEDS ORDERED: Sennosides/Docusate Sodium 50-8.6 MG Tab PO PRN (15:09)
[2023-08-03 15:19] LABS: CORONAVIRUS COVID-19 NAA NEGATIVE (NEGATIVE); INFLUENZA A NAA NEGATIVE (NEGATIVE); INFLUENZA B NAA NEGATIVE (NEGATIVE); RESPIRATORY SYNCYTIAL VIR NAA NEGATIVE (NEGATIVE)
[2023-08-03] MEDS: Ondansetron 4 MG/2 ML SDV IV PRN (15:50)
[2023-08-03] MEDS: LORazepam 2 MG/ML SDV IV SCH (16:03)
[2023-08-03] MEDS: Pantoprazole 40 MG Vial IV SCH (16:04)
[2023-08-03] MEDS: Gabapentin 300 MG Cap PO SCH (16:04)
[2023-08-03] MEDS: Enoxaparin 40 MG/0.4 ML Syringe SUBCUT SCH (17:24)
[2023-08-03] MEDS: Melatonin 3 MG Tab PO SCH (21:27)
[2023-08-04 04:48] LABS: A/G RATIO 0.8 (1.2-2.2); ALANINE AMINOTRANSFERASE,ALT 69 U/L (12-78); ALBUMIN 2.8 g/dL (3.4-5.0); ALKALINE PHOSPHATASE 108 U/L (46-116); ASPARTATE AMNIOTRANSFERASE,AST 81 U/L (15-37); BILIRUBIN TOTAL 1.3 mg/dL (0.2-1.0); BLOOD UREA NITROGEN,BUN 10 mg/dL (7-18); CALCIUM 7.9 mg/dL (8.5-10.1); CARBON DIOXIDE,CO2 26 mmol/L (21-32); CHLORIDE,CL 95 mmol/L (100-108); CREATININE 0.8 mg/dL (0.8-1.3); ESTIMATED GFR 104 mL/min (>60); GLUCOSE RANDOM 145 mg/dL (74-106); POTASSIUM,K 3.8 mmol/L (3.6-5.2); PROTEIN TOTAL,TP 6.3 g/dL (6.4-8.2); SODIUM,NA 129 mmol/L (140-148)
[2023-08-04 05:20] LABS: ANION GAP 11.8 mmol/L (5.0-14.0)
[2023-08-04 05:21] LABS: HEMOGLOBIN 14.4 g/dL (12.9-16.9); WHITE BLOOD CELL COUNT,WBC 10.2 K/uL (3.2-11.0)
[2023-08-04] MEDS: Thiamine 100 MG Tab PO SCH (08:19)
[2023-08-04] MEDS: Folic Acid 1 MG Tab PO SCH (08:19)
[2023-08-04] MEDS: Sodium Chloride 0.9% 1,000 ML IV SCH (10:15)
[2023-08-04] MEDS: Acetaminophen 325 MG Tab PO PRN (12:30)
[2023-08-04] MEDS: LORazepam 1 MG Tab PO SCH (12:30)
[2023-08-04] MEDS: Albuterol/Ipratropium 3.0-0.5 MG/3 ML Neb Soln NEB SCH ×2 (13:12→17:36)
[2023-08-04] MEDS: Ketorolac 30 MG/ML SDV IVPUSH ONE (14:42)
[2023-08-04] MEDS: Ketorolac 30 MG/ML SDV IVPUSH PRN (21:23)
[2023-08-05 04:38] LABS: A/G RATIO 0.6 (1.2-2.2); ALANINE AMINOTRANSFERASE,ALT 44 U/L (12-78); ALBUMIN 2.4 g/dL (3.4-5.0); ALKALINE PHOSPHATASE 99 U/L (46-116); ASPARTATE AMNIOTRANSFERASE,AST 28 U/L (15-37); BILIRUBIN TOTAL 0.8 mg/dL (0.2-1.0); BLOOD UREA NITROGEN,BUN 16 mg/dL (7-18); CALCIUM 8.1 mg/dL (8.5-10.1); CARBON DIOXIDE,CO2 27 mmol/L (21-32); CHLORIDE,CL 95 mmol/L (100-108); CREATININE 1.1 mg/dL (0.8-1.3); ESTIMATED GFR 79 mL/min (>60); GLUCOSE RANDOM 152 mg/dL (74-106); POTASSIUM,K 3.7 mmol/L (3.6-5.2); PROTEIN TOTAL,TP 6.3 g/dL (6.4-8.2); SODIUM,NA 130 mmol/L (140-148)
[2023-08-05 05:02] LABS: HEMOGLOBIN 13.9 g/dL (12.9-16.9); WHITE BLOOD CELL COUNT,WBC 8.1 K/uL (3.2-11.0)
[2023-08-05 05:05] LABS: ANION GAP 11.7 mmol/L (5.0-14.0)
[2023-08-05] MEDS: Sodium Chloride 0.9% 1,000 ML IV SCH (16:28)
[2023-08-06 05:43] LABS: CALCIUM 8.3 mg/dL (8.5-10.1); CREATININE 0.9 mg/dL (0.8-1.3); EST CRCL DRUG DOSING (CG) 106.6 mL/min; POTASSIUM,K 3.1 mmol/L (3.6-5.2)
[2023-08-06 06:01] LABS: ANION GAP 12.1 mmol/L (5.0-14.0)
[2023-08-06] MEDS: Potassium Chloride 20 MEQ Tab.ER PO ONE ×2 (08:19→14:36)
[2023-08-06] MEDS: FLUoxetine 20 MG Cap PO SCH (14:33)
[2023-08-06] MEDS: Naltrexone 50 MG Tab PO SCH (21:12)
[2023-08-07] MEDS: Potassium Chloride 20 MEQ Tab.ER PO ONE (08:12)
== END 2023-08-07 11:37 | disposition home or self-care (01) | DRG 439 ==
LOC: JP.ED 09:09 → JP.ICU 14:39
PROVIDERS: ADMIT Internal Medicine; ATTEND Internal Medicine
DX: K85.20 Alcohol induced acute pancreatitis without necrosis or infection (principal); E87.1 Hypo-osmolality and hyponatremia; F10.921 Alcohol use, unspecified with intoxication delirium; F10.931 Alcohol use, unspecified with withdrawal delirium; F33.1 Major depressive disorder, recurrent, moderate; K21.9 Gastro-esophageal reflux disease without esophagitis; G89.29 Other chronic pain; M54.9 Dorsalgia, unspecified; F41.9 Anxiety disorder, unspecified; F17.210 Nicotine dependence, cigarettes, uncomplicated; Z90.49 Acquired absence of other specified parts of digestive tract; Z79.899 Other long term (current) drug therapy
CPT/HCPCS: 0241U; 36415; 71045; 71045-26; 71275; 74177; 80048; 80053; 80305-QW; 80307; 81001; 82803; 83605; 83690; 83735; 83880; 84132; 84484; 85025; 85027; 85379; 85610; 93005; 93010; 94640; 96365; 96372; 96375; 99223; 99232; 99238; 99285; 99285-25; A9270-GY; C9113; J1170; J1650; J1885; J2060; J2405; J3411; J3490; J7030; J7120; J7620; Q9967

== ENCOUNTER 2024-01-17 06:03 | Emergency (ER) | payer MEDICAID ==
[2024-01-17] MEDS: Sodium Chloride 0.9% 1,000 ML IV SCH ×2 (06:37→07:41)
[2024-01-17 06:38] LABS: BASOPHILS ABSOLUTE AUTO 0.06 K/uL (0.00-0.10); BASOPHILS PERCENT AUTO 0.3 % (0.1-1.3); HEMATOCRIT 45.2 % (38.4-49.7); HEMOGLOBIN 16.8 g/dL (12.9-16.9); IMMATURE GRAN ABSOLUTE AUTO 0.34 K/uL (0.00-0.23); IMMATURE GRAN PERCENT AUTO 1.8 % (0.0-0.7); LYMPHOCYTES ABSOLUTE AUTO 0.93 K/uL (0.8-3.3); MEAN CORPUSCULAR HEMOGLOBIN 31.6 pg (31.6-35.5); MEAN CORPUSCULAR HGB CONC 37.2 g/dL (31.6-35.5); MONOCYTES ABSOLUTE AUTO 0.93 K/uL (0.20-0.90); NEUTROPHILS ABSOLUTE AUTO 16.18 K/uL (1.0-7.6); NEUTROPHILS PERCENT AUTO 87.9 % (40.0-78.1); PLATELET COUNT,PLT 344 K/uL (130-375); RED BLOOD CELL COUNT 5.32 M/uL (4.14-5.76); WHITE BLOOD CELL COUNT,WBC 18.4 K/uL (3.2-11.0)
[2024-01-17] MEDS: LORazepam 2 MG/ML SDV IVPUSH ONE ×2 (06:48→08:05)
[2024-01-17] MEDS: Octreotide 100 MCG/ML SDV IVPUSH ONE (06:48)
[2024-01-17 06:50] LABS: A/G RATIO 0.9 (1.2-2.2); ALANINE AMINOTRANSFERASE,ALT 46 U/L (12-78); ALBUMIN 3.7 g/dL (3.4-5.0); ALKALINE PHOSPHATASE 113 U/L (46-116); ANION GAP 31.4 mmol/L (5.0-14.0); ASPARTATE AMNIOTRANSFERASE,AST 32 U/L (15-37); BILIRUBIN TOTAL 0.7 mg/dL (0.2-1.0); BLOOD UREA NITROGEN,BUN 29 mg/dL (7-18); CALCIUM 8.3 mg/dL (8.5-10.1); CHLORIDE,CL 88 mmol/L (100-108); CREATININE 1.4 mg/dL (0.8-1.3); ESTIMATED GFR 59 mL/min (>60); GLUCOSE RANDOM 390 mg/dL (74-106); POTASSIUM,K 4.4 mmol/L (3.6-5.2); PROTEIN TOTAL,TP 7.7 g/dL (6.4-8.2); SODIUM,NA 128 mmol/L (140-148)
[2024-01-17 06:51] LABS: CARBON DIOXIDE,CO2 13 mmol/L (21-32); TROPONIN I HIGH SENSITIVITY < 4.0 pg/mL (<=60.3)
[2024-01-17 06:55] LABS: INR 0.9; PROTHROMBIN TIME 9.6 sec (9.2-10.6)
[2024-01-17] MEDS: Ondansetron 4 MG/2 ML SDV IVPUSH ONE (07:04)
[2024-01-17] MEDS: Pantoprazole 40 MG Vial IVPUSH ONE (07:46)
[2024-01-17] MEDS: Octreotide 500 MCG in Sodium Chloride 0.9% 497.5 ML IV SCH (08:10)
== END 2024-01-17 08:48 | disposition other institution (70) ==
LOC: JP.ED 06:03
DX: K92.0 Hematemesis (principal); F17.210 Nicotine dependence, cigarettes, uncomplicated; F10.120 Alcohol abuse with intoxication, uncomplicated; Z79.899 Other long term (current) drug therapy; Z90.49 Acquired absence of other specified parts of digestive tract; Y90.9 Presence of alcohol in blood, level not specified
CPT/HCPCS: 36415; 80053; 80307; 83690; 84484; 85025; 85610; 96361; 96365; 96375; 96376; 99284; 99285-25; J2060; J2354-JA; J2405; J2470; J7030; J7040

== ENCOUNTER 2024-05-23 13:32 | Emergency (ER) | payer MEDICAID ==
[2024-05-23] MEDS: HYDROmorphone 1 MG/ML Syringe IVPUSH ONE ×2 (13:41→14:15)
[2024-05-23 13:52] LABS: BASOPHILS PERCENT AUTO 0.1 % (0.1-1.3); EOSINOPHILS ABSOLUTE AUTO 0.03 K/uL (0.00-0.40); EOSINOPHILS PERCENT AUTO 0.4 % (0.0-5.4); HEMOGLOBIN 14.1 g/dL (12.9-16.9); IMMATURE GRAN ABSOLUTE AUTO 0.07 K/uL (0.00-0.23); LYMPHOCYTES ABSOLUTE AUTO 0.46 K/uL (0.8-3.3); LYMPHOCYTES PERCENT AUTO 6.4 % (11.4-47.7); MEAN CORPUSCULAR HEMOGLOBIN 29.9 pg (31.6-35.5); MEAN CORPUSCULAR HGB CONC 33.6 g/dL (31.6-35.5); MONOCYTES ABSOLUTE AUTO 0.47 K/uL (0.20-0.90); MONOCYTES PERCENT AUTO 6.6 % (3.3-12.6); NEUTROPHILS ABSOLUTE AUTO 6.12 K/uL (1.0-7.6); NEUTROPHILS PERCENT AUTO 85.5 % (40.0-78.1); PLATELET COUNT,PLT 103 K/uL (130-375); RED BLOOD CELL COUNT 4.72 M/uL (4.14-5.76); WHITE BLOOD CELL COUNT,WBC 7.2 K/uL (3.2-11.0)
[2024-05-23 13:53] LABS: BASOPHILS ABSOLUTE AUTO 0.01 K/uL (0.00-0.10)
[2024-05-23 14:05] LABS: CALCIUM 8.3 mg/dL (8.5-10.1); EST CRCL DRUG DOSING (CG) 95.9 mL/min; POTASSIUM,K 3.9 mmol/L (3.6-5.2)
[2024-05-23 14:10] LABS: ANION GAP 11.9 mmol/L (5.0-14.0)
[2024-05-23] MEDS ORDERED: Propofol 200 MG/20 ML SDV ONE (14:53)
== END 2024-05-23 16:20 | disposition home or self-care (01) ==
LOC: JP.ED 13:32
DX: S53.105A Unspecified dislocation of left ulnohumeral joint, initial encounter (principal); Z79.899 Other long term (current) drug therapy; Z79.4 Long term (current) use of insulin; W19.XXXA Unspecified fall, initial encounter; Y93.89 Activity, other specified
CPT/HCPCS: 24600; 36415; 73070; 80048; 80307; 85025; 96374; 96376; 99156; 99157; 99284; 99285; J1171; J2704

== ENCOUNTER 2024-07-14 17:32 | Inpatient (IN) | payer MEDICAID ==
[2024-07-14 18:24] LABS: BASOPHILS PERCENT AUTO 0.3 % (0.1-1.3); EOSINOPHILS ABSOLUTE AUTO 0.17 K/uL (0.00-0.40); EOSINOPHILS PERCENT AUTO 2.3 % (0.0-5.4); HEMATOCRIT 41.1 % (38.4-49.7); IMMATURE GRAN ABSOLUTE AUTO 0.05 K/uL (0.00-0.23); IMMATURE GRAN PERCENT AUTO 0.7 % (0.0-0.7); LYMPHOCYTES PERCENT AUTO 12.2 % (11.4-47.7); MEAN CORPUSCULAR HEMOGLOBIN 31.3 pg (31.6-35.5); MEAN CORPUSCULAR HGB CONC 36.5 g/dL (31.6-35.5); MEAN CORPUSCULAR VOLUME 85.6 fL (81.4-99.0); MONOCYTES PERCENT AUTO 5.4 % (3.3-12.6); NEUTROPHILS ABSOLUTE AUTO 5.84 K/uL (1.0-7.6); NEUTROPHILS PERCENT AUTO 79.1 % (40.0-78.1); PLATELET COUNT,PLT 189 K/uL (130-375); WHITE BLOOD CELL COUNT,WBC 7.4 K/uL (3.2-11.0)
[2024-07-14 18:25] LABS: BASOPHILS ABSOLUTE AUTO 0.02 K/uL (0.00-0.10)
[2024-07-14] MEDS ORDERED: Naloxone 0.4 MG/ML SDV IVPUSH PRN ×2 (18:28→23:52)
[2024-07-14] MEDS: Ondansetron 4 MG/2 ML SDV IVPUSH ONE (18:35)
[2024-07-14] MEDS: Sodium Chloride 0.9% 1,000 ML IV ONE ×2 (18:35→19:52)
[2024-07-14] MEDS: HYDROmorphone 0.5 MG/0.5 ML Syringe IVPUSH ONE (18:37)
[2024-07-14 19:03] LABS: PROTHROMBIN TIME 10.2 sec (9.2-10.6)
[2024-07-14 19:06] LABS: A/G RATIO 1.1 (1.2-2.2); ALANINE AMINOTRANSFERASE,ALT 50 U/L (12-78); ALBUMIN 3.8 g/dL (3.4-5.0); ALKALINE PHOSPHATASE 152 U/L (46-116); ASPARTATE AMNIOTRANSFERASE,AST 47 U/L (15-37); BILIRUBIN TOTAL 0.8 mg/dL (0.2-1.0); BLOOD UREA NITROGEN,BUN 8 mg/dL (7-18); CALCIUM 8.8 mg/dL (8.5-10.1); CARBON DIOXIDE,CO2 21 mmol/L (21-32); CHLORIDE,CL 83 mmol/L (100-108); CREATININE 0.9 mg/dL (0.8-1.3); EST CRCL DRUG DOSING (CG) 105.29 mL/min; ESTIMATED GFR 100 mL/min (>60); GLUCOSE RANDOM 141 mg/dL (74-106); POTASSIUM,K 4.6 mmol/L (3.6-5.2); PROTEIN TOTAL,TP 7.4 g/dL (6.4-8.2); SODIUM,NA 123 mmol/L (140-148)
[2024-07-14 19:09] LABS: ANION GAP 23.6 mmol/L (5.0-14.0); C-REACTIVE PROTEIN < 0.50 mg/dL (<0.50)
[2024-07-14 19:14] LABS: LACTIC ACID 7.6 mmol/L (0.4-2.0)
[2024-07-14] MEDS: Iopamidol 612 MG/ML 100 ML Bottle IV ONE (19:28)
[2024-07-14] MEDS: Sodium Chloride 0.9% 100 ML IV ONE (19:28)
[2024-07-14] MEDS: Sodium Chloride 0.9% 10 ML Syringe FLUSH ONE (19:28)
[2024-07-14] MEDS: LORazepam 2 MG/ML SDV IVPUSH ONE ×2 (20:48→23:35)
[2024-07-14] MEDS ORDERED: HYDROmorphone 0.5 MG/0.5 ML Syringe IVPUSH PRN (23:52)
[2024-07-15] MEDS: LORazepam 2 MG/ML SDV IV PRN (00:06)
[2024-07-15] MEDS: Pantoprazole 40 MG Vial IV ONE (00:21)
[2024-07-15] MEDS: Sodium Chloride 0.9% 1,000 ML IV SCH (00:39)
[2024-07-15] MEDS: LORazepam 1 MG Tab PO PRN (01:05)
[2024-07-15 05:56] LABS: HEMATOCRIT 40.2 % (38.4-49.7); HEMOGLOBIN 14.6 g/dL (12.9-16.9); MEAN CORPUSCULAR HEMOGLOBIN 31.6 pg (31.6-35.5); MEAN CORPUSCULAR HGB CONC 36.3 g/dL (31.6-35.5); RED BLOOD CELL COUNT 4.62 M/uL (4.14-5.76); WHITE BLOOD CELL COUNT,WBC 8.9 K/uL (3.2-11.0)
[2024-07-15 06:19] LABS: ALANINE AMINOTRANSFERASE,ALT 47 U/L (12-78); ALBUMIN 3.5 g/dL (3.4-5.0); ALKALINE PHOSPHATASE 140 U/L (46-116); ASPARTATE AMNIOTRANSFERASE,AST 49 U/L (15-37); BILIRUBIN TOTAL 1.2 mg/dL (0.2-1.0); BLOOD UREA NITROGEN,BUN 9 mg/dL (7-18); CALCIUM 8.5 mg/dL (8.5-10.1); CARBON DIOXIDE,CO2 22 mmol/L (21-32); CHLORIDE,CL 94 mmol/L (100-108); CREATININE 0.9 mg/dL (0.8-1.3); EST CRCL DRUG DOSING (CG) 105.29 mL/min; ESTIMATED GFR 100 mL/min (>60); GLUCOSE RANDOM 113 mg/dL (74-106); MAGNESIUM 1.7 mg/dL (1.8-2.4); POTASSIUM,K 4.4 mmol/L (3.6-5.2); PROTEIN TOTAL,TP 6.9 g/dL (6.4-8.2); SODIUM,NA 130 mmol/L (140-148)
[2024-07-15 06:20] LABS: ANION GAP 18.4 mmol/L (5.0-14.0)
[2024-07-15] MEDS: Insulin Lispro 100 Unit/ML 3 ML KwikPen SUBCUT SCH (08:04)
[2024-07-15] MEDS: Folic Acid 1 MG Tab PO SCH (08:57)
[2024-07-15] MEDS: Magnesium Sulf/Wat 2 GM/50 mL 2 GM in Premix Bag 1 BAG IV ONE (09:00)
[2024-07-15] MEDS: Nicotine 14 MG/24 Hr Patch TRDERM SCH (09:01)
[2024-07-15] MEDS: Thiamine 100 MG Tab PO SCH (09:03)
[2024-07-15] MEDS: Insulin Glargine,Human Rec. Analog 100 Units/ML 3 ML Pen SUBCUT SCH (09:20)
[2024-07-15] MEDS: DULoxetine 20 MG Cap PO SCH (12:13)
[2024-07-15] MEDS: Acetaminophen 325 MG Tab PO PRN (18:41)
[2024-07-15] MEDS: Ondansetron 4 MG/2 ML SDV IV PRN (19:23)
[2024-07-15] MEDS: QUEtiapine 100 MG Tab PO SCH (21:36)
[2024-07-16 06:11] LABS: ANION GAP 12.6 mmol/L (5.0-14.0); CALCIUM 8.7 mg/dL (8.5-10.1); CREATININE 0.8 mg/dL (0.8-1.3); EST CRCL DRUG DOSING (CG) 118.45 mL/min; POTASSIUM,K 3.6 mmol/L (3.6-5.2)
[2024-07-16] MEDS: Potassium Chloride 20 MEQ Tab.ER PO ONE (09:39)
[2024-07-16] MEDS: Ondansetron 4 MG Tab.DIS PO PRN (12:27)
[2024-07-17 05:53] LABS: BASOPHILS PERCENT AUTO 0.6 % (0.1-1.3); EOSINOPHILS ABSOLUTE AUTO 0.09 K/uL (0.00-0.40); EOSINOPHILS PERCENT AUTO 2.7 % (0.0-5.4); HEMOGLOBIN 13.8 g/dL (12.9-16.9); IMMATURE GRAN PERCENT AUTO 0.6 % (0.0-0.7); LYMPHOCYTES ABSOLUTE AUTO 1.04 K/uL (0.8-3.3); LYMPHOCYTES PERCENT AUTO 31.4 % (11.4-47.7); MEAN CORPUSCULAR HEMOGLOBIN 30.9 pg (31.6-35.5); MEAN CORPUSCULAR HGB CONC 34.5 g/dL (31.6-35.5); MEAN CORPUSCULAR VOLUME 89.7 fL (81.4-99.0); MONOCYTES ABSOLUTE AUTO 0.45 K/uL (0.20-0.90); MONOCYTES PERCENT AUTO 13.6 % (3.3-12.6); NEUTROPHILS ABSOLUTE AUTO 1.69 K/uL (1.0-7.6); NEUTROPHILS PERCENT AUTO 51.1 % (40.0-78.1); PLATELET COUNT,PLT 90 K/uL (130-375); RED BLOOD CELL COUNT 4.46 M/uL (4.14-5.76); WHITE BLOOD CELL COUNT,WBC 3.3 K/uL (3.2-11.0)
[2024-07-17 05:58] LABS: BASOPHILS ABSOLUTE AUTO 0.02 K/uL (0.00-0.10); IMMATURE GRAN ABSOLUTE AUTO 0.02 K/uL (0.00-0.23)
[2024-07-17 06:14] LABS: ALANINE AMINOTRANSFERASE,ALT 45 U/L (12-78); ALBUMIN 3.2 g/dL (3.4-5.0); ALKALINE PHOSPHATASE 121 U/L (46-116); ASPARTATE AMNIOTRANSFERASE,AST 38 U/L (15-37); BILIRUBIN TOTAL 0.7 mg/dL (0.2-1.0); BLOOD UREA NITROGEN,BUN 11 mg/dL (7-18); CALCIUM 9.2 mg/dL (8.5-10.1); CARBON DIOXIDE,CO2 28 mmol/L (21-32); CHLORIDE,CL 98 mmol/L (100-108); EST CRCL DRUG DOSING (CG) 94.76 mL/min; ESTIMATED GFR 88 mL/min (>60); GLUCOSE RANDOM 166 mg/dL (74-106); PROTEIN TOTAL,TP 6.5 g/dL (6.4-8.2); SODIUM,NA 134 mmol/L (140-148)
[2024-07-18] MEDS ORDERED: oxyCODONE 5 MG Tab PO PRN (09:51)
[2024-07-18] MEDS: LORazepam 0.5 MG Tab PO PRN (13:53)
[2024-07-19] MEDS ORDERED: QUEtiapine 100 MG Tab PO SCH
== END 2024-07-19 13:20 | disposition home or self-care (01) | DRG 897 ==
LOC: JP.ED 17:32 → JP.ICU 22:38
PROVIDERS: ADMIT Internal Medicine; ATTEND Internal Medicine
PROC: HZ2ZZZZ Detoxification Services for Substance Abuse Treatment (ICD-10-PCS; principal; 2024-07-14)
DX: F10.139 Alcohol abuse with withdrawal, unspecified (principal); E87.1 Hypo-osmolality and hyponatremia; F33.1 Major depressive disorder, recurrent, moderate; K52.9 Noninfective gastroenteritis and colitis, unspecified; F41.9 Anxiety disorder, unspecified; E11.9 Type 2 diabetes mellitus without complications; K21.9 Gastro-esophageal reflux disease without esophagitis; M54.9 Dorsalgia, unspecified; G89.29 Other chronic pain; R56.9 Unspecified convulsions; E86.0 Dehydration; Z72.0 Tobacco use; Z79.4 Long term (current) use of insulin; Z79.899 Other long term (current) drug therapy; Z90.49 Acquired absence of other specified parts of digestive tract
CPT/HCPCS: 36415; 74177; 80048; 80053; 82947; 83605; 83690; 83735; 85025; 85027; 85610; 86140; 99222; 99232; 99238; 99285; A9270-GY; J1815; J1815-GY; J2060; J2405; J2470; J3475; J7030; Q0162; Q9967